=== PATIENT | male | born 1955 | race Caucasian/White ===

== ENCOUNTER 2022-03-31 13:36 | Outpatient (CLI) | payer MEDICARE ==
[2022-03-31 14:38] LABS: #Eosinphils 0.1 10x3/uL (0.0-0.5); #Monocytes 0.7 10x3/uL (0.0-1.1); #Neutrophils 4.1 10x3/uL (1.5-8.4); %Basophils 0.4 % (0.0-2.0); %Eosinophils 0.9 % (0.0-6.0); %Lymphocytes 35.1 % (18.0-47.0); %Monocytes 9.5 % (0.0-10.0); %Neutrophils 53.7 % (40.0-75.0); Hemoglobin 13.7 g/dL (13.5-17.5); Mean Corpuscular HGB CONC 36.5 g/dL (32.0-36.0); Mean Corpuscular Hemoglobin 32.9 pg (27.0-33.0); Mean Corpuscular Volume 90.1 fl (81.2-95.1); Mean Platelet Volume 8.7 fl (7.4-10.4); Platelet Count 212 10x3/uL (150-450); RBC Distribution Width 11.9 % (11.5-14.5); Red Blood Cell (RBC) Count 4.16 10x6/uL (4.32-5.72); White Blood Cell (WBC) Count 7.6 10x3/uL (3.5-10.5)
[2022-03-31 15:02] LABS: ALT (SGPT) 40 U/L (8-55); AST (SGOT) 30 U/L (5-34); Albumin 4.6 g/dL (3.4-4.8); Alkaline Phosphatase 56 U/L (40-110); Anion Gap 14 mmol/L (10-20); BUN (Urea Nitrogen) 14 mg/dL (8.4-25.7); Bilirubin, Total 0.6 mg/dL (0.2-1.2); Calc. Creatinine Clearance 0 mL/min (70-130); Calcium 9.4 mg/dL (7.8-10.44); Carbon Dioxide 27 mmol/L (23-31); Chloride 102 mmol/L (98-107); Estimated GFR 99; Glucose 113 mg/dL (80-115); Potassium 4.8 mmol/L (3.5-5.1); Protein, Total 7.6 g/dL (5.8-8.1); Sodium 138 mmol/L (136-145)
== END 2022-03-31 13:37 | disposition home or self-care (01) ==
LOC: LABBT 13:36
PROVIDERS: ATTEND Internal Medicine Cardiovascular Disease
DX: Z01.812 Encounter for preprocedural laboratory examination (principal); I25.10 Atherosclerotic heart disease of native coronary artery without angina pectoris
CPT/HCPCS: 80053; 85025

== ENCOUNTER 2022-04-03 05:36 | Day surgery (SDC) | payer MEDICARE ==
[2022-03-31 10:54] VITALS: BMI 36.2
[2022-04-03 07:29] LABS: Cardiac Risk 2.9 (Less than 4.5)
[2022-04-03] MEDS ORDERED: Lidocaine 1% PF 5 ML VIAL ONE (08:31)
[2022-04-03] MEDS ORDERED: Heparin 10,000 UNITS/ 10 ML VIAL ONE (08:38)
[2022-04-03] MEDS ORDERED: Verapamil 5 MG/2 ML VIAL ONE (08:38)
[2022-04-03] MEDS ORDERED: Nitroglycerin 100MG/250ML BOT 250 ML ONE (08:38)
[2022-04-03] MEDS ORDERED: FENTANYL 50 MCG/ML 1 ML VIAL ONE (08:52)
[2022-04-03] MEDS ORDERED: Midazolam HCl 2 mg/2 ml Vial ONE (08:52)
[2022-04-03] MEDS ORDERED: Iopamidol 370 76% 100 ML VIAL ONE (10:39)
== END 2022-04-03 12:58 | disposition home or self-care (01) ==
LOC: CCL 05:36
PROVIDERS: ATTEND Internal Medicine Cardiovascular Disease
PROC: 4A023N7 Measurement of Cardiac Sampling and Pressure, Left Heart, Percutaneous Approach (ICD-10-PCS; principal; 2022-04-03)
PROC: B2111ZZ Fluoroscopy of Multiple Coronary Arteries using Low Osmolar Contrast (ICD-10-PCS; 2022-04-03)
DX: I25.118 Atherosclerotic heart disease of native coronary artery with other forms of angina pectoris (principal); E78.00 Pure hypercholesterolemia, unspecified; I10 Essential (primary) hypertension; F17.290 Nicotine dependence, other tobacco product, uncomplicated; Z79.02 Long term (current) use of antithrombotics/antiplatelets; Z79.899 Other long term (current) drug therapy
CPT/HCPCS: 36415; 80061; 93454; 99152; 99153; C1769; C1894; J1644; J2250; J3010; Q9967

== ENCOUNTER 2022-04-14 08:15 | Inpatient (IN) | payer MEDICARE ==
[2022-04-14 10:19] LABS: Mean Corpuscular HGB CONC 35.7 g/dL (32.0-36.0); Mean Corpuscular Hemoglobin 32.6 pg (27.0-33.0); Mean Corpuscular Volume 91.2 fl (81.2-95.1); Mean Platelet Volume 8.9 fl (7.4-10.4); Platelet Count 225 10x3/uL (150-450); RBC Distribution Width 11.9 % (11.5-14.5); Red Blood Cell (RBC) Count 3.99 10x6/uL (4.32-5.72); White Blood Cell (WBC) Count 8.2 10x3/uL (3.5-10.5)
[2022-04-14 10:41] LABS: Anion Gap 12 mmol/L (10-20); BUN (Urea Nitrogen) 22 mg/dL (8.4-25.7); Calc. Creatinine Clearance 0 mL/min (70-130); Carbon Dioxide 26 mmol/L (23-31); Chloride 103 mmol/L (98-107); Estimated GFR 98; Glucose 157 mg/dL (80-115); Potassium 4.2 mmol/L (3.5-5.1); Sodium 137 mmol/L (136-145)
[2022-04-17] MEDS ORDERED: Albumin 5% 500 ML ONE (06:15)
[2022-04-17] MEDS ORDERED: Lidocaine 1% MPF 2 ML VIAL ONE (06:31)
[2022-04-17] MEDS ORDERED: Heparin 10,000 UNITS/1 ML VIAL 30,000 UNITS in Sodium Chloride 0.9% 1,000 ML FS SCH (07:00)
[2022-04-17] MEDS ORDERED: Metoprolol Tartrate 5 MG/5 ML VIAL ONE (07:10)
[2022-04-17] MEDS ORDERED: Sodium Chloride 0.9% 100 ML ONE (07:19)
[2022-04-17] MEDS ORDERED: CEFAZOLIN 2 GM VIAL ONE (07:19)
[2022-04-17 07:23] LABS: SARS-CoV-2 NAA Rapid Test Not Detected (NotDetected)
[2022-04-17] MEDS ORDERED: Fentanyl 250 MCG/5 ML VIAL ONE (07:27)
[2022-04-17] MEDS ORDERED: Midazolam HCl 5 mg/5 ml Vial ONE (07:28)
[2022-04-17] MEDS ORDERED: Heparin 5,000 UNITS/ML VIAL ONE (07:34)
[2022-04-17] MEDS ORDERED: Protamine Sulfate 50 MG/5 ML VIAL ONE (07:34)
[2022-04-17] MEDS ORDERED: Sodium Bicarb 50 MEQ/50 ML VIAL ONE (07:34)
[2022-04-17] MEDS ORDERED: Cardioplegic Soln 1,000 ML BAG ONE (07:34)
[2022-04-17] MEDS ORDERED: Aminocaproic Acid 5 GM/20 ML VIAL ONE (07:34)
[2022-04-17] MEDS ORDERED: Heparin 30,000 units/30 ml VIAL ONE (07:34)
[2022-04-17] MEDS ORDERED: Papaverine 60 MG/2 ML VIAL ONE (07:34)
[2022-04-17] MEDS ORDERED: Rocuronium Bromide 10 MG/ML (10ML VIAL) ONE (07:34)
[2022-04-17] MEDS ORDERED: Vancomycin 1 GM VIAL ONE (07:34)
[2022-04-17] MEDS ORDERED: Thrombin 5000 UNITS/5 ML VIAL ONE (07:34)
[2022-04-17] MEDS ORDERED: Lidocaine 2% PF 100 mg/5 ml Syringe ONE (07:34)
[2022-04-17] MEDS ORDERED: Potassium Chloride 60 MEQ/30 ML VIAL ONE (07:34)
[2022-04-17] MEDS ORDERED: Labetalol HCl 100 MG/20 ML VIAL ONE (07:34)
[2022-04-17] MEDS ORDERED: Calcium Chloride 1 GM/10 ML Abboject SYRINGE ONE (07:34)
[2022-04-17] MEDS ORDERED: PROPOFOL 200 MG/20 ML VIAL ONE (07:34)
[2022-04-17] MEDS ORDERED: Ondansetron PF 4 MG/2 ML Vial ONE (07:34)
[2022-04-17] MEDS ORDERED: PHENYLEPHRINE-NS 100 MCG/ML 10 ML SYRINGE ONE ×2 (07:34→09:01)
[2022-04-17] MEDS ORDERED: Mannitol 12.5 GM/50 ML ONE (07:34)
[2022-04-17] MEDS ORDERED: Rocuronium Bromide 50 MG/5 ML VIAL ONE ×2 (08:23→10:57)
[2022-04-17] MEDS ORDERED: Insulin Regular 300 UNITS/3 ML VIAL ONE (10:11)
[2022-04-17] MEDS ORDERED: Nitroglycerin 50 MG/250 ML BOT 0 ML ONE (11:26)
[2022-04-17] MEDS ORDERED: Lorazepam 0.5 MG TAB PO PRN (11:28)
[2022-04-17] MEDS ORDERED: Morphine 2 MG/ML VIAL SLOW IVP PRN (11:28)
[2022-04-17] MEDS ORDERED: FENTANYL 50 MCG/ML 1 ML VIAL SLOW IVP PRN (11:28)
[2022-04-17] MEDS ORDERED: hydrALAZINE 20 MG/ML VIAL SLOW IVP PRN (11:28)
[2022-04-17] MEDS ORDERED: Post-Op Insulin Drip Protocol IVPB ONE (11:28)
[2022-04-17] MEDS ORDERED: Bisacodyl 5 MG TAB PO PRN (11:28)
[2022-04-17] MEDS ORDERED: Bisacodyl 10 MG SUPP PR PRN (11:28)
[2022-04-17] MEDS ORDERED: Hetastarch 6% 500 ML 500 ML IVPB PRN (11:28)
[2022-04-17] MEDS ORDERED: Nitroglycerin 50 MG/250 ML BOT 250 ML IVPB PRN (11:28)
[2022-04-17] MEDS ORDERED: NOREPINEPHRINE 8 MG/250 ML-D5W 250 ML IVPB PRN (11:28)
[2022-04-17] MEDS ORDERED: Mag-Al 1200 mg/1200 mg/30 ML UDCUP PO PRN (11:28)
[2022-04-17] MEDS ORDERED: Guaifenesin DM 100-10/5 ML UDCUP PO PRN (11:28)
[2022-04-17] MEDS ORDERED: Acetaminophen 325 MG TAB PO PRN (11:28)
[2022-04-17] MEDS ORDERED: Ondansetron PF 4 MG/2 ML Vial IVP PRN (11:28)
[2022-04-17 11:34] LABS: Actual Bicarbonate (HCO3a) 23.5 mEq/L (22-28); Base Excess (BEa) -3.5 mEq/L (-2.0 to +3.0); CO2 Tension 50.6 mmHg (35.0-45.0); Calcium, Ionized (arterial) 1.13 mmol/L (1.12-1.30); Carboxyhemoglobin (COHb) 0.3 gm% (0.0-3.0); Hemoglobin (Hb) 12.1 g/dL (14.0-18.0); O2 Tension (PaO2), arterial 81.1 mmHg (> 80.0); Potassium - ABG Lab 4.59 mmol/L (3.70-5.30); pH, Arterial 7.28 (7.35-7.45)
[2022-04-17 11:35] LABS: Puncture Site Arterial Line
[2022-04-17] MEDS: FENTANYL 50 MCG/ML 1 ML VIAL SLOW IVP PRN ×2 (11:40→21:27)
[2022-04-17] MEDS: Ketorolac Tromethamine 30 MG/ML VIAL IVP SCH ×3 (11:40→23:53)
[2022-04-17] MEDS ORDERED: HUMULIN R 100 UNITS in Sodium Chloride 0.9% 100 ML IVPB SCH (11:45)
[2022-04-17] MEDS ORDERED: Dextrose 50% Abboject 50 ML SYRINGE SLOW IVP PRN (11:45)
[2022-04-17] MEDS ORDERED: Dextrose 5% in Water 1,000 ML IV PRN (11:45)
[2022-04-17] MEDS: Morphine 4 MG/ML VIAL SLOW IVP PRN ×3 (11:51→13:32)
[2022-04-17 11:53] VITALS: BMI 37.6
[2022-04-17 12:00] LABS: #Basophils 0.1 thou/uL (0.0-0.2); #Lymphocytes 1.6 thou/uL (1.20-3.40); #Monocytes 1.2 thou/uL (0.11-0.59); #Neutrophils 10.6 thou/uL (1.40-6.50); %Eosinophils 0.4 % (0.0-10.0); %Lymphocytes 11.5 % (21.0-51.0); %Monocytes 8.9 % (0.0-10.0); %Neutrophils 78.4 % (42.0-75.0); Hemoglobin 11.6 g/dL (14.0-18.0); Mean Corpuscular HGB CONC 35.2 g/dL (32.0-36.0); Mean Corpuscular Hemoglobin 33.8 pg (27.0-31.0); Mean Platelet Volume 6.5 fL (7.4-10.4); Platelet Count 171 10x3/uL (130-400); RBC Distribution Width 11.2 % (11.5-14.5); Red Blood Cell (RBC) Count 3.43 mill/uL (4.70-6.10); White Blood Cell (WBC) Count 13.5 10x3/uL (4.8-10.8)
[2022-04-17 12:12] LABS: INR-International Normal Ratio 1.2; Prothrombin Time 15.8 sec (12.0-14.7)
[2022-04-17 12:13] LABS: PTT 57.8 sec (22.9-36.1)
[2022-04-17 12:18] LABS: Anion Gap 13 mmol/L (10-20); BUN (Urea Nitrogen) 13 mg/dL (8.4-25.7); Calc. Creatinine Clearance 153 mL/min (70-130); Calcium 7.8 mg/dL (7.8-10.44); Carbon Dioxide 21 mmol/L (23-31); Chloride 108 mmol/L (98-107); Estimated GFR 96; Glucose 184 mg/dL (80-115); Potassium 4.5 mmol/L (3.5-5.1); Sodium 137 mmol/L (136-145)
[2022-04-17] MEDS: CEFAZOLIN 2 GM in Sodium Chloride 0.9% 100 ML IVPB SCH ×2 (13:10→21:06)
[2022-04-17 13:57] LABS: Actual Bicarbonate (HCO3a) 21.3 mEq/L (22-28); Base Excess (BEa) -3.4 mEq/L (-2.0 to +3.0); CO2 Tension 37.2 mmHg (35.0-45.0); Calcium, Ionized (arterial) 1.09 mmol/L (1.12-1.30); Carboxyhemoglobin (COHb) 0.5 gm% (0.0-3.0); O2 Tension (PaO2), arterial 101.1 mmHg (> 80.0); pH, Arterial 7.38 (7.35-7.45)
[2022-04-17 14:07] LABS: Puncture Site Arterial Line
[2022-04-17] MEDS: niCARdipine 25 MG in Sodium Chloride 0.9% 250 ML 250 ML IVPB PRN ×3 (14:33→22:07)
[2022-04-17] MEDS: HYDROcodone/Acetaminophen 5/325 mg Tablet PO PRN ×2 (14:48→19:23)
[2022-04-17] MEDS: Lactated Ringer's 1,000 ML IV SCH (18:11)
[2022-04-17 18:14] LABS: Hemoglobin 13.5 g/dL (14.0-18.0)
[2022-04-17] MEDS: Potassium Chloride 20 MEQ/100 ML PREMIX BAG IVPB PRN (19:28)
[2022-04-17] MEDS: Lorazepam 0.5 MG TAB PO PRN (20:40)
[2022-04-17] MEDS: Famotidine/PF 20 mg/2ml Vial SLOW IVP SCH (20:40)
[2022-04-17] MEDS: Buprenorphine 8mg/Naloxone 2mg per 1 FILM SL SCH (21:04)
[2022-04-18] MEDS: niCARdipine 25 MG in Sodium Chloride 0.9% 250 ML 250 ML IVPB PRN (00:25)
[2022-04-18] MEDS: HYDROcodone/Acetaminophen 5/325 mg Tablet PO PRN ×4 (02:09→21:23)
[2022-04-18] MEDS: Lorazepam 0.5 MG TAB PO PRN ×4 (02:09→21:23)
[2022-04-18 05:34] LABS: Mean Corpuscular HGB CONC 35.4 g/dL (32.0-36.0); Mean Corpuscular Hemoglobin 34.2 pg (27.0-31.0); Mean Corpuscular Volume 96.7 fl (78.0-98.0); Mean Platelet Volume 6.6 fL (7.4-10.4); Platelet Count 183 10x3/uL (130-400); RBC Distribution Width 11.4 % (11.5-14.5); White Blood Cell (WBC) Count 11.7 10x3/uL (4.8-10.8)
[2022-04-18 05:38] LABS: Anion Gap 10 mmol/L (10-20); BUN (Urea Nitrogen) 12 mg/dL (8.4-25.7); Calc. Creatinine Clearance 196 mL/min (70-130); Calcium 7.6 mg/dL (7.8-10.44); Carbon Dioxide 22 mmol/L (23-31); Chloride 106 mmol/L (98-107); Estimated GFR 104; Glucose 127 mg/dL (80-115); Sodium 134 mmol/L (136-145)
[2022-04-18] MEDS: Ketorolac Tromethamine 30 MG/ML VIAL IVP SCH ×3 (05:49→16:59)
[2022-04-18] MEDS: CEFAZOLIN 2 GM in Sodium Chloride 0.9% 100 ML IVPB SCH (05:49)
[2022-04-18] MEDS: FENTANYL 50 MCG/ML 1 ML VIAL SLOW IVP PRN (06:18)
[2022-04-18] MEDS: Potassium Chloride 20 MEQ/100 ML PREMIX BAG IVPB PRN (06:19)
[2022-04-18 06:35] LABS: Band 7 % (5-11); Lymphocytes 27 % (21-51); MDiff Complete? YES; Monocytes 12 % (0-10); Neutrophil 54 % (42-75)
[2022-04-18] MEDS: Famotidine/PF 20 mg/2ml Vial SLOW IVP SCH (08:19)
[2022-04-18] MEDS: Aspirin 325 MG TAB PO SCH (08:19)
[2022-04-18] MEDS: Lactated Ringer's 1,000 ML IV SCH (08:19)
[2022-04-18] MEDS: Insulin Regular 300 UNITS/3 ML VIAL SC PRN ×4 (08:21→21:27)
[2022-04-18] MEDS: Buprenorphine 8mg/Naloxone 2mg per 1 FILM SL SCH ×2 (08:32→21:57)
[2022-04-18] MEDS ORDERED: Insulin Glargine 30 UNITS/0.3 ML VIAL SC PRN (11:31)
[2022-04-18] MEDS ORDERED: Nitroglycerin 0.4 MG TAB (25 Tab Bottle) SL PRN (19:41)
[2022-04-18] MEDS ORDERED: Famotidine 20 MG TAB PO SCH (20:00)
[2022-04-18] MEDS ORDERED: Dextrose 50% Abboject 50 ML SYRINGE SLOW IVP PRN (20:00)
[2022-04-18] MEDS ORDERED: Enoxaparin Sodium 40 MG/0.4 ML SYRINGE SC SCH (20:00)
[2022-04-18] MEDS ORDERED: Dextrose 5% in Water 1,000 ML IV PRN (20:00)
[2022-04-18] MEDS: Atorvastatin Calcium 20 MG TAB PO SCH (20:48)
[2022-04-18] MEDS ORDERED: Melatonin 3 MG TAB PO SCH (21:00)
[2022-04-19] MEDS: Ketorolac Tromethamine 30 MG/ML VIAL IVP SCH ×5 (00:15→23:46)
[2022-04-19] MEDS: HYDROcodone/Acetaminophen 5/325 mg Tablet PO PRN ×4 (04:12→16:17)
[2022-04-19] MEDS: Lorazepam 0.5 MG TAB PO PRN ×4 (04:13→20:44)
[2022-04-19] MEDS ORDERED: Diltiazem HCl 125 MG, Admixture Fee 1 EACH in Sodium Chloride 0.9% 100 ML IVPB SCH (05:45)
[2022-04-19] MEDS: Insulin Regular 300 UNITS/3 ML VIAL SC PRN ×3 (06:20→20:52)
[2022-04-19] MEDS: glyBURIDE 2.5 MG TAB PO SCH (07:28)
[2022-04-19] MEDS: Furosemide 40 MG TAB PO SCH (08:09)
[2022-04-19] MEDS: Potassium Chloride 10 MEQ TAB PO SCH (08:09)
[2022-04-19] MEDS: Famotidine 20 MG TAB PO SCH ×2 (08:09→20:43)
[2022-04-19] MEDS: Enoxaparin Sodium 40 MG/0.4 ML SYRINGE SC SCH (08:10)
[2022-04-19] MEDS ORDERED: Rosuvastatin 20 MG TAB PO SCH (09:00)
[2022-04-19] MEDS: Aspirin 325 MG TAB PO SCH (09:18)
[2022-04-19] MEDS: Buprenorphine 8mg/Naloxone 2mg per 1 FILM SL SCH ×2 (09:18→20:56)
[2022-04-19] MEDS ORDERED: Amiodarone 150 MG in Dextrose 5% in Water 100 ML IVPB SCH (09:30)
[2022-04-19] MEDS: Amiodarone 450 MG in Dextrose 5% in Water 250 ML IVPB SCH ×2 (10:35→20:48)
[2022-04-19] MEDS: Melatonin 3 MG TAB PO SCH (20:43)
[2022-04-19] MEDS: Metoprolol Tartrate 25 MG TAB PO SCH (20:44)
[2022-04-19] MEDS: Atorvastatin Calcium 20 MG TAB PO SCH (20:44)
[2022-04-20] MEDS: HYDROcodone/Acetaminophen 5/325 mg Tablet PO PRN ×6 (00:58→20:45)
[2022-04-20] MEDS: Lorazepam 0.5 MG TAB PO PRN ×5 (00:59→23:10)
[2022-04-20] MEDS: Ketorolac Tromethamine 30 MG/ML VIAL IVP SCH ×2 (06:13→11:47)
[2022-04-20] MEDS: Insulin Regular 300 UNITS/3 ML VIAL SC PRN (06:14)
[2022-04-20] MEDS: Enoxaparin Sodium 40 MG/0.4 ML SYRINGE SC SCH (09:00)
[2022-04-20] MEDS: Furosemide 40 MG TAB PO SCH (09:00)
[2022-04-20] MEDS: glyBURIDE 2.5 MG TAB PO SCH (09:00)
[2022-04-20] MEDS: Aspirin 325 MG TAB PO SCH (09:00)
[2022-04-20] MEDS: Metoprolol Tartrate 25 MG TAB PO SCH ×2 (09:00→20:46)
[2022-04-20] MEDS: Famotidine 20 MG TAB PO SCH ×2 (09:00→20:46)
[2022-04-20] MEDS: Potassium Chloride 10 MEQ TAB PO SCH (09:00)
[2022-04-20] MEDS: Buprenorphine 8mg/Naloxone 2mg per 1 FILM SL SCH ×2 (10:12→23:08)
[2022-04-20] MEDS: Amiodarone 450 MG in Dextrose 5% in Water 250 ML IVPB SCH (10:13)
[2022-04-20] MEDS ORDERED: Methocarbamol 500 MG TAB PO PRN (20:23)
[2022-04-20] MEDS: Atorvastatin Calcium 20 MG TAB PO SCH (20:45)
[2022-04-20] MEDS: Amiodarone 200 MG TAB PO SCH (20:45)
[2022-04-20] MEDS: Melatonin 3 MG TAB PO SCH (20:46)
[2022-04-21] MEDS: Enoxaparin Sodium 40 MG/0.4 ML SYRINGE SC SCH (08:09)
[2022-04-21] MEDS: HYDROcodone/Acetaminophen 5/325 mg Tablet PO PRN (08:10)
[2022-04-21] MEDS: Lorazepam 0.5 MG TAB PO PRN ×2 (08:10→12:04)
[2022-04-21] MEDS: glyBURIDE 2.5 MG TAB PO SCH (08:11)
[2022-04-21] MEDS: Furosemide 40 MG TAB PO SCH (08:11)
[2022-04-21] MEDS: Metoprolol Tartrate 25 MG TAB PO SCH (08:11)
[2022-04-21] MEDS: Famotidine 20 MG TAB PO SCH (08:11)
[2022-04-21] MEDS: Aspirin 325 MG TAB PO SCH (08:11)
[2022-04-21] MEDS: Potassium Chloride 10 MEQ TAB PO SCH (08:11)
[2022-04-21] MEDS: Amiodarone 200 MG TAB PO SCH (08:11)
[2022-04-21] MEDS ORDERED: Valsartan 80 MG TAB PO SCH (09:00)
[2022-04-21] MEDS: Buprenorphine 8mg/Naloxone 2mg per 1 FILM SL SCH (10:20)
[2022-04-21 11:56] VITALS: BP 135/75; TEMP 98
== END 2022-04-21 15:00 | disposition home or self-care (01) | DRG 236 ==
LOC: SURG A 04-17 06:05 → CCU 04-17 10:43 → 2NO 04-19 22:33
PROVIDERS: ADMIT Thoracic Surgery (Cardiothoracic Vascular Surgery); ATTEND Thoracic Surgery (Cardiothoracic Vascular Surgery)
PROC: 02100Z9 Bypass Coronary Artery, One Artery from Left Internal Mammary, Open Approach (ICD-10-PCS; principal; 2022-04-17)
PROC: 021209W Bypass Coronary Artery, Three Arteries from Aorta with Autologous Venous Tissue, Open Approach (ICD-10-PCS; 2022-04-17)
PROC: 07TM0ZZ Resection of Thymus, Open Approach (ICD-10-PCS; 2022-04-17)
PROC: 06BQ4ZZ Excision of Left Saphenous Vein, Percutaneous Endoscopic Approach (ICD-10-PCS; 2022-04-17)
PROC: 06BP4ZZ Excision of Right Saphenous Vein, Percutaneous Endoscopic Approach (ICD-10-PCS; 2022-04-17)
PROC: 5A1221Z Performance of Cardiac Output, Continuous (ICD-10-PCS; 2022-04-17)
PROC: 02L70CK Occlusion of Left Atrial Appendage with Extraluminal Device, Open Approach (ICD-10-PCS; 2022-04-17)
DX: I25.10 Atherosclerotic heart disease of native coronary artery without angina pectoris (principal); Z20.822 Contact with and (suspected) exposure to COVID-19; I10 Essential (primary) hypertension; E78.00 Pure hypercholesterolemia, unspecified; I48.91 Unspecified atrial fibrillation; I95.9 Hypotension, unspecified; E66.3 Overweight; Z96.653 Presence of artificial knee joint, bilateral; Z95.5 Presence of coronary angioplasty implant and graft; Z82.49 Family history of ischemic heart disease and other diseases of the circulatory system; Z87.891 Personal history of nicotine dependence; Z79.899 Other long term (current) drug therapy; Z79.02 Long term (current) use of antithrombotics/antiplatelets; Z68.36 Body mass index [BMI] 36.0-36.9, adult
CPT/HCPCS: 36416; 36430; 71045; 80048; 82805; 85025; 85027; 85610; 85730; 86850; 86900; 86901; 93005; 93010; 93798; 94002; 97139; C1713; C1751; C1776; J0282; J1642; J1644; J1650; J1815; J1885; J2001; J2150; J2250; J2270; J2405; J2440; J2704; J2720; J3010; J3370; J3480; J3490; J7050; J7070; J7120; P9045; S0017; S0028; U0002